=== PATIENT | female | born 1975 | race Hispanic/Latino ===

== ENCOUNTER 2018-07-21 08:26 | Day surgery (SDC) | payer BC ==
--- NOTE | 2018-07-17 16:04 | RAD REPORT ---
EXAM DESCRIPTION: Maria Luisa Blankenship (2 Views)07/17/2018 3:45 pm CLINICAL HISTORY: Preop surgery for breast mass COMPARISON: None FINDINGS: The lungs appear clear of acute infiltrate. The heart is normal size IMPRESSION: No acute abnormalities displayed
[2018-07-17 17:01] LABS: Absolute Lymphocytes (CBC) 2.3 K/uL (0.7-4.9); Absolute Monocytes 0.4 K/uL (0.1-1.3); Absolute Neutrophil 4.9 K/uL (1.8-8.0); Basophils % 0.5 % (0-1.3); Eosinophils % 2.3 % (0-4.4); Hematocrit 38.6 % (36.0-45.0); Lymphocytes % 29.7 % (15.3-44.8); MCH 30.5 pg (27.0-35.0); MCV 90.1 fL (80-100); MPV 8.7 fL (7.6-11.3); Monocytes % 4.8 % (3.3-12.3); RBC Red Blood Cell Count 4.28 M/uL (3.86-4.86)
[2018-07-17 17:03] LABS: BUN Blood Urea Nitrogen 10 mg/dL (7-18); Bicarbonate 31 mmol/L (21-32); Glucose Level 116 mg/dL (74-106); Potassium 3.7 mmol/L (3.5-5.1); Sodium Level 141 mmol/L (136-145)
--- NOTE | 2018-07-18 07:35 | EKG ---
Test Date: 2018-07-17 Test Time: 15:36:31 Claim Professional: PATIENCE MEASUREMENT RESULTS: Intervals: Rate: 66 WY: 166 QRSD: 80 QT: 400 QTc: 419 Leslie: P: 57 WY: 166 QRS: 67 T: 66 INTERPRETIVE STATEMENTS: Normal sinus rhythm Normal ECG No previous ECG available for comparison Electronically Signed On 07-18-18 07:34:11 CDT by Pierre Martinez
[2018-07-21] MEDS ORDERED: CEFAZOLIN/SWI 1gm 1 GM/10 ML SYR ONE (08:58)
[2018-07-21] MEDS ORDERED: PROPOFOL 200 MG/20 ML VIAL IV ONE ×2 (09:03→10:06)
[2018-07-21] MEDS ORDERED: MIDAZOLAM HCL 2 MG/2 ML INJ ONE ×2 (09:04→10:07)
[2018-07-21] MEDS ORDERED: FENTANYL CITR 100 MCG/2 ML ONE ×2 (09:04→10:07)
[2018-07-21] MEDS ORDERED: LIDOCAINE 1% MPF 2 ML AMPULE ONE ×2 (09:05→10:07)
[2018-07-21] MEDS ORDERED: ONDANSETRON HCL 40 MG/20 ML VIAL ONE ×2 (09:05→10:07)
[2018-07-21] MEDS ORDERED: BUPIVACAINE 0.5% PF 10 ML VIAL ONE (09:05)
[2018-07-21] MEDS: Ringers Lactate 1,000 ML IV ONE ×2 (09:05→10:05)
--- NOTE | 2018-07-21 10:51 | P.BOP ---
Preoperative diagnosis: right breast mass Postoperative diagnosis: same Primary procedure: Right breast lumpectomy Care Program Director: Genoveva Pop Estimated blood loss: <10cc Specimen: mass Findings: complex cystic mass Anesthesia: General Complications: None Transferred to: Recovery Room Condition: Good
[2018-07-21] MEDS ORDERED: CODEINE 30MG/APAP 300MG TAB ONE (12:33)
--- NOTE | 2018-07-21 21:45 | OP ---
Date of Procedure: 07/21/2018 Surgeon: Akira Ochoa MD Catering And Events Manager: DALIA Freeman. Preoperative Diagnosis: Tender right breast mass. Postoperative Diagnosis: Tender right breast mass. Procedure: Right breast lumpectomy. Specimen: Mass. Findings: Complex cystic mass. Anesthesia: General plus local. Indications: This is the case of a 43-year-old patient, comes to us with a large and right tender br east mass. Imaging shows enlarging complex cyst with new septations. After discussing pros and cons , the patient wants that excised. The benefits, alternatives, and risks of excision fully explained, which include but are not limited to infection, bleeding, damage to adjacent structures, anesthesia complication, recurrence, MO, and even . She also understands this may not relieve any symptoms . She might need more than one surgical intervention. She understood. Signed a consent. The mass was palpable so the area of concern was marked by me and the patient in the holding room. Description Of Procedure: The patient was brought to the operating room, placed in supine position. Anesthesia was done without complication. The right breast was prepped and draped in sterile fashio n. A time-out was called. After that, incision was made in the periareolar region. Incision was ca rried down to deep breast tissue. This mass was deep but was clearly purple, so we proceeded to go a ll the way down to the mass and then put an Allis on that and then removed the mass all the way down, touched the fascia of the muscle, did not penetrate the muscle, did not penetrate the fascia. The m ass was removed. The area was irrigated and then area was closed with 3-0 chromic and then 4-0 PDS. Sponge count, instrument counts were correct. The patient tolerated the procedure well. The patien t was sent to Recovery in stable condition. Disposition: Home. Activity: As tolerated. No heavy lifting. Followup: Follow up in my office in a week. Call for appointment on [phone]. Keep the area dry fo r 48 hours, then may shower. Keep Steri-Strips intact. Keep breast support. Medications: See orders. KIAH/MODL Voice ID: [id number] Report ID: [id number]
== END 2018-07-21 12:45 | disposition home or self-care (01) ==
LOC: OR 08:26
PROVIDERS: ATTEND Surgery
PROC: 0HBT0ZZ Excision of Right Breast, Open Approach (ICD-10-PCS; principal; 2018-07-21 09:45)
DX: D24.1 Benign neoplasm of right breast (principal); I10 Essential (primary) hypertension; Z82.49 Family history of ischemic heart disease and other diseases of the circulatory system
CPT/HCPCS: 36415; 71046; 80048; 81025; 85025; 88305; 88307; 93005; J0690; J2001; J2250; J2405; J3010